=== PATIENT | female | born 1975 | race Caucasian/White ===

== ENCOUNTER 2023-06-03 00:51 | Day surgery (SDC) | payer BC, SELFPAY ==
[2023-05-28 13:48] VITALS: BMI 19.7
[2023-06-03 07:14] VITALS: BP 121/71; PULSE 72; RESP 18; TEMP 36.1; O2SAT 99
[2023-06-03] MEDS: LACTATED RINGERS 1,000 ML 150 ML IV CONT (07:21)
--- NOTE | 2023-06-03 07:50 | WPDANESEPPF ---
Anes - Initial Pre Proc Eval Procedure: Operation Date: 06/03/23 08:15 Proposed Procedures p Screening Colonoscopy - Palmer Amaro MD Date/Time: 06/03/23 07:50 Surgeon: Palmer Amaro MD Pre Op Diagnosis: neoplasm screening Patient Data Age: 47 Gender: F Height: 1.75 m Weight: 61.5 kg Last Vital Signs Temp 36.1 C L 06/03/23 07:14 Pulse 72 06/03/23 07:14 Resp 18 06/03/23 07:14 BP 121/71 06/03/23 07:14 Pulse Ox 99 06/03/23 07:14 O2 Del Method Room Air 06/03/23 07:14 Allergies Allergy/AdvReac Type Severity Reaction Status Date / Time No Known Allergies Allergy Mild Verified 06/03/23 07:08 Home Medications Medication Instructions Recorded Confirmed Type sodium,potassium,mag sulfates 17.5 See Rx Instructions PO .COMPLEX 04/24/23 05/28/23 Rx gram-3.13 gram-1.6 gram oral soln #354 mL (Suprep Bowel Prep Kit) alprazolam 0.5 mg tablet 0.5 mg PO BID 05/28/23 05/28/23 History naltrexone 1.5 cap PO DAILY 05/28/23 05/28/23 History thyroid (pork) 90 mg tablet 90 mg PO DAILY 05/28/23 05/28/23 History ([place] Thyroid) Patient hx anesthesia problems: none Family hx anesthesia problems: none Results Review: All pre-operative results and documents have been reviewed as part of the pre-operative evaluation. PMFSH Family History Family History Father Hypertension Family history of elevated blood lipids Social History Social History Smoking packs per day: 0.5 Smoking cigarettes per day: 10.0 Years smoked: 5 Smoking pack-years: 2.50 Smoking status: Former smoker Tobacco type: cigarettes Second hand tobacco smoke exposure: No Alcohol intake: current Drinks per week: 1 Substance use: never Substance use type: does not use Living arrangements: with family Spiritual care concerns: No Anes - Eval Final PreProcedure Day of Procedure 06/03/23 07:50 Patient weight: normal Heart: regular rate and rhythm Lungs: clear to auscultation Airway: Mallampati scale class 1 Neurological: alert and oriented Last oral intake: >/= 8 hours ASA classification: II Emergent: no Anesthetic plan: proceed Anesthesia type and monitoring: general GIVS and standard monitoring Results Review: All pre-operative results and documents have been reviewed as part of the pre-operative evaluation. Informed Consent: The patient's anesthetic plan and its attendant risks and benefits were discussed with the patient/family/POA. Questions were solicited and answers provided to the satisfaction of the patient/family/POA.
--- NOTE | 2023-06-03 08:16 | P.HP_ITS ---
History of Present Illness History of Present Illness Consent: Risks, benefits, and alternatives have been discussed and questions answered. Patient agrees to proceed with procedure. Chief complaint: neoplasm screening Narrative: Leidy Gardner is a 47 year old female Presents for screening colonoscopy. Patient's current weight appetite and bowel movements are normal. She denies abdominal pain. She has had no bleeding. Family history is noncontributory. Review of Systems Review of Systems: Review of systems noncontributory. [facility] Family History Family History Father Hypertension Family history of elevated blood lipids Social History Social History Smoking packs per day: 0.5 Smoking cigarettes per day: 10.0 Years smoked: 5 Smoking pack-years: 2.50 Smoking status: Former smoker Tobacco type: cigarettes Second hand tobacco smoke exposure: No Alcohol intake: current Drinks per week: 1 Substance use: never Substance use type: does not use Living arrangements: with family Spiritual care concerns: No Meds Home Medications and Allergies Home Medications Medication Instructions Recorded Confirmed Type sodium,potassium,mag sulfates 17.5 See Rx Instructions PO .COMPLEX 04/24/23 05/28/23 Rx gram-3.13 gram-1.6 gram oral soln #354 mL (Suprep Bowel Prep Kit) alprazolam 0.5 mg tablet 0.5 mg PO BID 05/28/23 05/28/23 History naltrexone 1.5 cap PO DAILY 05/28/23 05/28/23 History thyroid (pork) 90 mg tablet 90 mg PO DAILY 05/28/23 05/28/23 History ([place] Thyroid) Allergies Allergy/AdvReac Type Severity Reaction Status Date / Time No Known Allergies Allergy Mild Verified 06/03/23 07:08 Vital Signs Vital Signs - 24 hr 06/03/23 07:14 Temperature 97 F L Pulse Rate 72 Respiratory Rate 18 Blood Pressure 121/71 Pulse Oximetry 99 Oxygen Delivery Room Air Exam Narrative: Physical exam reveals patient to be alert. Vital signs stable. HEENT exam is unremarkable. Patient is anicteric. Lungs are clear to auscultation and percussion. Heart is without murmur or extra sounds. Abdominal exam bowel sounds are present soft nontender with no organomegaly. Digital external rectal exam is normal. Assessment and Plan Assessment and plan (1) Encounter for screening colonoscopy: Code(s): Z12.11 - Encounter for screening for malignant neoplasm of colon Status: Acute Assessment and Plan: Patient presents today for screening colonoscopy. She appears to be at average risk for colon polyps. Further recommendations may be given after endoscopy.
[2023-06-03 08:52] VITALS: BP 106/69; PULSE 52; RESP 21; O2SAT 100
[2023-06-03 09:02] VITALS: BP 133/82; PULSE 54; RESP 20; O2SAT 100
[2023-06-03 09:12] VITALS: BP 122/71; PULSE 54; RESP 23; O2SAT 100
== END 2023-06-03 09:13 | disposition home or self-care (01) ==
PROVIDERS: Visit Provider Internal Medicine Gastroenterology
PROC: 0DJD8ZZ Inspection of Lower Intestinal Tract, Via Natural or Artificial Opening Endoscopic (ICD-10-PCS; CPT 45378; principal; 2023-06-03 08:15)
DX: Z12.11 Encounter for screening for malignant neoplasm of colon (principal); D12.2 Benign neoplasm of ascending colon; K57.30 Diverticulosis of large intestine without perforation or abscess without bleeding; K64.8 Other hemorrhoids; Z87.891 Personal history of nicotine dependence
CPT/HCPCS: 45385; 88305; J2704; J7120